=== PATIENT | male | born 1960 | race Caucasian/White ===

== ENCOUNTER 2016-10-13 18:06 | Emergency (ER) | payer OTHER ==
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
[2016-10-13 18:45] VITALS: PULSE 93; TEMP 98.3; BMI 27.3
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
[2016-10-13 19:49] VITALS: BP 221/114
== END 2016-10-13 19:56 | disposition home or self-care (01) ==
LOC: FER 18:06
DX: F07.81 Postconcussional syndrome (principal); G44.309 Post-traumatic headache, unspecified, not intractable; S09.90XA Unspecified injury of head, initial encounter; V43.52XA Car driver injured in collision with other type car in traffic accident, initial encounter; Y93.89 Activity, other specified; Y92.410 Unspecified street and highway as the place of occurrence of the external cause
CPT/HCPCS: 70450-TC; 99282-25